=== PATIENT | male | born 1970 | race Caucasian/White ===

== ENCOUNTER → 2020-04-03 13:01 | Outpatient (CLI) | payer OTHER, SELFPAY ==
[2020-04-04 23:50] LABS: COVID19 Sendout Not Detected (Not Detect)
== END ==
PROVIDERS: Visit Provider Physician Assistant
DX: Z11.59 Encounter for screening for other viral diseases (principal)
CPT/HCPCS: 87635

== ENCOUNTER → 2021-12-22 16:26 | Outpatient (CLI) | payer OTHER, SELFPAY ==
--- NOTE | 2021-12-22 | DI.MRI.S_ITS ---
PROCEDURE: MR ANKLE RT WO CON INDICATIONS: pain in rt foot TECHNIQUE: Noncontrast sagittal T1 spin echo and T2 fast spin echo with fat saturation, axial proton density fast spin echo and T2 fast spin echo with fat saturation, coronal T1 spin echo and T2 fast spin echo with fat saturation through the ankle/hindfoot. COMPARISON: None. FINDINGS: Image quality: Excellent. Bones and joints: No bone marrow contusions or fractures. No hindfoot coalitions. Small chronic osteochondral lesion is seen at the lateral talar dome measuring 3 x 3 x 3 mm with focal subchondral edema. The overlying subchondral plate is intact and there is mild irregularity of the overlying articular cartilage. Cystic changes within the central calcaneus may be related to ligamentous traction or intraosseous ganglion formation. Mild degenerative changes at the 2nd tarsometatarsal joint and at the dorsal tarsometatarsal joint. A small ganglion cyst is seen at the plantar aspect of the 2nd tarsometatarsal joint measuring 13 x 7 x 6 mm. Medial structures: The deep and superficial layers of the deltoid ligament appear intact. The spring ligament components are intact. The posterior tibialis, flexor digitorum longus, and flexor hallucis longus tendons are intact. The posterior tibial neurovascular bundle appears normal within the tarsal tunnel, without extrinsic mass effect. Lateral structures: The anterior talofibular, calcaneofibular, and posterior talofibular ligaments appear intact. The anterior and posterior tibiofibular ligaments appear intact. Mild peroneus longus tendinosis. The peroneus brevis tendon is intact. There is partial effacement of the fat in the rotator interval. A cyst is seen in the sinus tarsi measuring up to 17 x 9 x 6 mm. Anterior structures: The tibialis anterior, extensor hallucis longus, and extensor digitorum longus tendons appear intact. The dorsal talonavicular ligament appears intact. Posterior and plantar structures: There is mild insertional Achilles tendinosis. Small retrocalcaneal bursal effusion. Mild thickening of the proximal plantar fascia is seen without surrounding edema. No abductor digiti quinti muscle atrophy to suggest Donovan neuropathy. IMPRESSION: 1. Tiny chronic osteochondral lesion at the lateral talar dome with mild subchondral edema and partial-thickness cartilage irregularity. Subchondral plate is intact. 2. Mild degenerative changes at the 2nd tarsometatarsal joint with a lobular ganglion cyst at the plantar aspect measuring up to 13 mm. 3. Mild peroneus longus tendinosis. 4. Mild tendinosis of the distal Achilles tendon. Small retrocalcaneal bursal effusion. 5. Mild chronic proximal plantar fasciitis. 6. Lobular ganglion cyst arising from the sinus tarsi measures up to 17 mm. Dictated by: Sg Winslow M.D. on 12/23/2021 at 8:09 Approved by: Sg Winslow M.D. on 12/23/2021 at 8:22
== END ==
PROVIDERS: Referring Provider Podiatrist; Visit Provider Podiatrist
DX: M67.471 Ganglion, right ankle and foot (principal); M25.471 Effusion, right ankle; M72.2 Plantar fascial fibromatosis; M79.671 Pain in right foot
CPT/HCPCS: 73721

== ENCOUNTER 2022-12-08 11:05 | Emergency (ER) | payer MEDICARE, OTHER, SELFPAY ==
[2022-12-08 11:10] VITALS: BP 150/87; PULSE 72; RESP 18; TEMP 36.6; O2SAT 99; BMI 39.1
--- NOTE | 2022-12-08 11:17 | DI.RAD.S_ITS ---
PROCEDURE: XR CHEST 2V INDICATIONS: CP TECHNIQUE: 2 views of the chest were acquired. COMPARISON: None. FINDINGS: Surgical changes and devices: None. Lungs and pleura: Lungs are clear. No pleural effusions or pneumothorax. Mediastinum: Mediastinal contours are normal. Heart size is normal. Bones and chest wall: No suspicious bony abnormalities. Soft tissues appear unremarkable. IMPRESSION: No acute pulmonary process. Dictated by: Daja Gage M.D. on 12/08/2022 at 12:25 Approved by: Daja Gage M.D. on 12/08/2022 at 12:25
--- NOTE | 2022-12-08 11:17 | ED_ITS ---
HPI - General Adult <Jimi Bland PA-C - Last Filed: 12/08/22 13:32> General Chief complaint: Hypertension Stated complaint: send by PCP/ high BP Time Seen by Provider: 12/08/22 11:06 Source: patient Mode of arrival: Ambulatory History of Present Illness HPI narrative: This is a 52-year-old male presents to the emergency department complaining elevated blood pressures for the last 3 days as well as a sensation of chest ?tightness? for the last 3 months. He states that it has slightly worsened over the last couple of days. He reports that his blood pressure was to ensure in 210/ ?over something. Patient does not have any cardiac history but does state history of hypertension he stopped taking his blood pressure medications 3 years ago ?just because?. He did take the propranolol that was previously prescribed to him last night. He denies any headaches, shortness of breath, nausea, vomiting, abdominal pain, or any other concerning signs or symptoms. Patient had a cardiac stress test a year ago and ?passed with flying colors?. Related Data Allergies Allergy/AdvReac Type Severity Reaction Status Date / Time No Known Drug Allergies Allergy Verified 12/08/22 11:15 Review of Systems <Jimi Bland PA-C - Last Filed: 12/08/22 13:32> Review of Systems Narrative: GENERAL: Denies chills, fatigue, malaise, fever, sweats. HEENT: Denies sinus pain, ear pain, sore throat, difficulty swallowing, dizziness. RESPIRATORY: Denies dyspnea, cough, wheezing, hemoptysis, sputum. CARDIOVASCULAR: Reports chest ?tightness? denies palpitations, orthopnea, edema, GASTROINTESTINAL: Denies nausea, vomiting, abdominal pain, diarrhea, constipation, melena. : Denies dysuria, frequency, incontinence, hematuria, urinary retention. MUSCULOSKELETAL: denies weakness, joint pain, or bony pain SKIN: Denies rash, skin lesions, or other NEUROLOGIC: Denies weakness, headache, numbness, change in speech, confusion, seizures, incoordination. PSYCHIATRIC: No concerning psychosocial issues. 12 point review of systems is negative except for those stated above Patient History <Jimi Bland PA-C - Last Filed: 12/08/22 13:32> Social History Smoking Status: Current every day smoker Smoking Status: Current every day smoker alcohol intake frequency: 0-2 drinks per day Substance Use Type: marijuana and prescription drug Exam <Jimi Bland PA-C - Last Filed: 12/08/22 13:32> Narrative Exam Narrative: GENERAL: Well-developed patient, in mild distress. HEAD: Atraumatic. Normocephalic. EYES: Pupils equal round and reactive. Extraocular motions intact. No scleral icterus. No injection or drainage. ENT: Nose without bleeding, purulent drainage. Throat without erythema, tonsillar hypertrophy or exudate. Airway patent. NECK: Trachea midline. Non tender CARDIOVASCULAR: Regular rate and rhythm without murmurs, gallops, or rubs. RESPIRATORY: Clear to auscultation. Breath sounds equal bilaterally. No wheezes, rales, or rhonchi. GASTROINTESTINAL: Abdomen soft, non-tender, nondistended. EXTREMITIES: No edema or joint tenderness. BACK: Nontender without deformity or crepitance. No flank tenderness. NEURO: AOx3. SKIN: No rash or erythema of visible areas Initial Vital Signs Initial Vital Signs: Vital Signs Temperature 97.9 F 12/08/22 11:10 Pulse Rate 72 12/08/22 11:10 Respiratory Rate 18 12/08/22 11:10 Blood Pressure 150/87 H 12/08/22 11:10 Pulse Oximetry 99 12/08/22 11:10 Oxygen Delivery Method Room Air 12/08/22 11:10 <Vitaly Clement DO - Last Filed: 12/13/22 04:16> Initial Vital Signs Initial Vital Signs: Vital Signs Temperature 97.9 F 12/08/22 11:10 Pulse Rate 72 12/08/22 11:10 Respiratory Rate 18 12/08/22 11:10 Blood Pressure 150/87 H 12/08/22 11:10 Pulse Oximetry 99 12/08/22 11:10 Oxygen Delivery Method Room Air 12/08/22 11:10 Course <Jimi Bland PA-C - Last Filed: 12/08/22 13:32> Orders Ordered: ED Orders 12/08/22 11:16 Complete Blood Count AUTO DIFF Stat Comprehensive Metabolic Panel Stat Troponin & CK Cardiac Panel Stat EKG-12 Lead Stat 12/08/22 11:17 XR chest 2V Stat Vital Signs Vital signs: Vital Signs - 8 hr 12/08/22 11:10 12/08/22 12:41 Temperature 97.9 F Pulse Rate 72 62 Respiratory Rate 18 15 Blood Pressure 150/87 H 182/99 H Pulse Oximetry 99 Oxygen Delivery Method Room Air <Vitaly Clement DO - Last Filed: 12/13/22 04:16> Orders Ordered: ED Orders 12/08/22 11:16 Complete Blood Count AUTO DIFF Stat Comprehensive Metabolic Panel Stat Troponin & CK Cardiac Panel Stat EKG-12 Lead Stat 12/08/22 11:17 XR chest 2V Stat Vital Signs Vital signs: Vital Signs - 8 hr 12/08/22 11:10 12/08/22 12:41 Temperature 97.9 F Pulse Rate 72 62 Respiratory Rate 18 15 Blood Pressure 150/87 H 182/99 H Pulse Oximetry 99 Oxygen Delivery Method Room Air Medical Decision Making <Jimi Bland PA-C - Last Filed: 12/08/22 13:32> Lab Data 12/08/22 11:20 12/08/22 11:20 Labs: Lab Results 12/08/22 12/08/22 Range/Units 11:20 11:20 WBC 5.1 (4.5-11.0) X10^3/uL RBC 4.87 (4.5-5.9) X10^6/uL Hgb 14.7 (13.5-17.5) g/dL Hct 43.2 (41-53) % MCV 88.6 (80-100) fL MCH 30.3 (26-34) PG MCHC 34.1 (30-36) % RDW 13.3 (11.6-14.8) % Plt Count 199 (150-400) X10^3/uL Neut % (Auto) 48.5 L (50-75) % Lymph % (Auto) 35.5 (25-40) % [place] % (Auto) 10.6 (3-14) % Eos % (Auto) 4.2 H (2-4) % Baso % (Auto) 1.2 (0-2) % Neut # (Auto) 2500 (1009-3283) /uL Lymph # (Auto) 1800 (5879-9319) /uL [place] # (Auto) 500 (0-900) /uL Eos # (Auto) 200 (0-450) /uL Baso # (Auto) 100 (0-100) /uL Sodium 138 (137-145) mmol/L Potassium 4.0 (3.4-5.1) mmol/L Chloride 103 (98-107) mmol/L Carbon Dioxide 30 (22-32) mmol/L BUN 14 (9-20) mg/dL Creatinine 1.03 (0.66-1.25) mg/dL Estimated GFR > 60 (>60) mL/min BUN/Creatinine Ratio 13.6 (6-22) Glucose 106 H (70-100) mg/dL Calcium 9.1 (8.4-10.2) mg/dL Total Bilirubin 0.8 (0.2-1.3) mg/dL AST 51 (17-59) IU/L ALT 67 H (<50) IU/L Alkaline Phosphatase 66 (38-126) U/L Total Creatine Kinase 472 H (55-170) U/L CK-MB (CK-2) TNP CK-MB (CK-2) Rel Index TNP Troponin I < 0.012 (0.01-0.034) ng/mL Total Protein 7.3 (6.3-8.2) g/dL Albumin 4.4 (3.5-5.0) g/dL Globulin 2.9 (1.7-4.1) g/dL Albumin/Globulin Ratio 1.5 (1.0-2.8) Imaging Data Chest x-ray: Radiologist's Impression: [address] [address] XRay Report Signed Patient: César Peterson MR#: [id number] : 1970 Acct:[id number] Age/Sex: 52 / M Date of Service: 12/08/22 Loc: ED Accession Number: [id number] ?? Procedure: XR chest 2V Ordering Provider: Jimi Bland P.A-C PROCEDURE:? XR CHEST 2V ? INDICATIONS:? CP ? TECHNIQUE:? 2 views of the chest were acquired.? ? COMPARISON:? None. ? FINDINGS:? ? Surgical changes and devices:? None.? ? Lungs and pleura:? Lungs are clear.? No pleural effusions or pneumothorax.? ? Mediastinum:? Mediastinal contours are normal.? Heart size is normal.? ? Bones and chest wall:? No suspicious bony abnormalities.? Soft tissues appear unremarkable.? ? IMPRESSION:? No acute pulmonary process. ? ? Dictated by: Daja Gage M.D. on 12/08/2022 at 12:25 ? ? Approved by: Daja Gage M.D. on 12/08/2022 at 12:25 ? ECG Data Interpretation: EKG is normal sinus rhythm rate 60 and free of any signs of ischemia or ectopy. No ST segmental elevation or depression. No T wave inversions MDM Narrative Medical decision making narrative: MDM * differential diagnosis includes but not limited to STEMI, NSTEMI, musculoskeletal chest pain, allergic reaction, atypical chest pain, thoracic aneurysm, hypertensive emergency * Prior records reviewed: Patient has not been here for similar symptoms in the past. * My lab interpretation: Lab work unremarkable. Troponin within normal limit. * My imaging interpretation: Chest x-ray unremarkable * Clinical Decision Rules/Scores evaluated: Heart score of 2 due to age and risk factors * Independent discussions with: None ED Course: This is a 52-year-old male presents emergency department due to reports of elevated blood pressure although today in the emergency department was 150/87. He is also describing a chest ?tightness? over last 3 months which she says is worse over the last couple of days with his elevated blood pressures. He is not been taking his blood pressure medications. He did take his propranolol last night and this morning which I suspect help with his blood pressure readings. I recommend he continue taking his blood pressure medications that were prescribed by his primary care doctor and to follow up with his primary care doctor for long-term blood pressure management. Patient is not exhibiting any other symptoms of end-organ damage. EKG, chest x-ray, unremarkable and troponin within normal limits and low concern for ACS. Shared Decision Making: Discussed plan the patient is comfortable with the plan. Social Considerations: None Disposition: Discharged to home <Vitaly Clement DO - Last Filed: 12/13/22 04:16> Lab Data Labs: Lab Results 12/08/22 12/08/22 Range/Units 11:20 11:20 WBC 5.1 (4.5-11.0) X10^3/uL RBC 4.87 (4.5-5.9) X10^6/uL Hgb 14.7 (13.5-17.5) g/dL Hct 43.2 (41-53) % MCV 88.6 (80-100) fL MCH 30.3 (26-34) PG MCHC 34.1 (30-36) % RDW 13.3 (11.6-14.8) % Plt Count 199 (150-400) X10^3/uL Neut % (Auto) 48.5 L (50-75) % Lymph % (Auto) 35.5 (25-40) % [place] % (Auto) 10.6 (3-14) % Eos % (Auto) 4.2 H (2-4) % Baso % (Auto) 1.2 (0-2) % Neut # (Auto) 2500 (8699-1498) /uL Lymph # (Auto) 1800 (0444-3925) /uL [place] # (Auto) 500 (0-900) /uL Eos # (Auto) 200 (0-450) /uL Baso # (Auto) 100 (0-100) /uL Sodium 138 (137-145) mmol/L Potassium 4.0 (3.4-5.1) mmol/L Chloride 103 (98-107) mmol/L Carbon Dioxide 30 (22-32) mmol/L BUN 14 (9-20) mg/dL Creatinine 1.03 (0.66-1.25) mg/dL Estimated GFR > 60 (>60) mL/min BUN/Creatinine Ratio 13.6 (6-22) Glucose 106 H (70-100) mg/dL Calcium 9.1 (8.4-10.2) mg/dL Total Bilirubin 0.8 (0.2-1.3) mg/dL AST 51 (17-59) IU/L ALT 67 H (<50) IU/L Alkaline Phosphatase 66 (38-126) U/L Total Creatine Kinase 472 H (55-170) U/L CK-MB (CK-2) TNP CK-MB (CK-2) Rel Index TNP Troponin I < 0.012 (0.01-0.034) ng/mL Total Protein 7.3 (6.3-8.2) g/dL Albumin 4.4 (3.5-5.0) g/dL Globulin 2.9 (1.7-4.1) g/dL Albumin/Globulin Ratio 1.5 (1.0-2.8) Discharge Plan Departure Patient Disposition: Home Clinical Impression: Elevated blood pressure reading Instructions: DI for High Blood Pressure Activity Restrictions/Additional Instructions: Thank you for coming to the [facility] Emergency Department today. Your workup today was unremarkable. Your chest x-ray showed no evidence of any lung abnormalities. Your EKG showed no evidence of any kind of cardiac abnormality. Your blood values were reassuring as well. Recommend you continue taking the blood pressure medication that was prescribed to you by your primary care provider. Please follow up with them within the week for long-term management of your blood pressure. I hope you feel better soon. Referrals: Markos Bentley MD [Primary Care Provider] - Stand Alone Forms: Patient Portal/API <Vitaly Clement DO - Last Filed: 12/13/22 04:16> Cosign ED Attending Taneshaature Attestation: I was immediately available in the department for consultation. Documentation has been reviewed. I agree with assessment and plan.
[2022-12-08 11:42] LABS: Alanine Aminotransferase 67 IU/L (<50); Albumin 4.4 g/dL (3.5-5.0); Albumin Globulin Ratio 1.5 (1.0-2.8); Alkaline Phosphatase 66 U/L (38-126); Aspartate Aminotransferase 51 IU/L (17-59); BUN Creatinine Ratio 13.6 (6-22); Bilirubin Total 0.8 mg/dL (0.2-1.3); Blood Urea Nitrogen 14 mg/dL (9-20); Calcium 9.1 mg/dL (8.4-10.2); Carbon Dioxide 30 mmol/L (22-32); Chloride 103 mmol/L (98-107); Creatine Kinase 472 U/L (55-170); Estimated Glomerular Filt Rate > 60 mL/min (>60); Globulin 2.9 g/dL (1.7-4.1); Glucose 106 mg/dL (70-100); HEMOLYSIS < 15 (0-50); Sodium 138 mmol/L (137-145); Total Protein 7.3 g/dL (6.3-8.2)
[2022-12-08 11:46] LABS: Add Manual Diff / Slide Review NO; Basophils Absolute Auto 100 /uL (0-100); Basophils Percent Auto 1.2 % (0-2); Eosinophils Absolute Auto 200 /uL (0-450); Eosinophils Percent Auto 4.2 % (2-4); Hematocrit 43.2 % (41-53); Hemoglobin 14.7 g/dL (13.5-17.5); Lymphocytes Absolute Auto 1800 /uL (1100-4500); Lymphocytes Percent Auto 35.5 % (25-40); Mean Corpuscular HGB Conc 34.1 % (30-36); Mean Corpuscular Hemoglobin 30.3 PG (26-34); Mean Corpuscular Volume 88.6 fL (80-100); Monocytes Absolute Auto 500 /uL (0-900); Monocytes Percent Auto 10.6 % (3-14); Neutrophils Absolute Auto 2500 /uL (1500-7000); Neutrophils Percent Auto 48.5 % (50-75); Platelet Count 199 X10^3/uL (150-400); Red Blood Cell Count 4.87 X10^6/uL (4.5-5.9); Red Cell Distribution Width 13.3 % (11.6-14.8); White Blood Cell Count 5.1 X10^3/uL (4.5-11.0)
[2022-12-08 11:54] LABS: Troponin I < 0.012 ng/mL (0.01-0.034)
[2022-12-08 12:41] VITALS: BP 182/99; PULSE 62; RESP 15
== END 2022-12-08 12:44 | disposition home or self-care (01) ==
PROVIDERS: Emergency Provider Physician Assistant Medical; PCP Internal Medicine
DX: I10 Essential (primary) hypertension (principal); R07.9 Chest pain, unspecified
CPT/HCPCS: 36415; 71046; 80053; 82550; 84484; 85025; 93005; 99284

== ENCOUNTER 2024-10-29 07:01 | Emergency (ER) | payer MEDICARE, OTHER, SELFPAY ==
[2024-10-29 07:07] VITALS: BP 176/91; PULSE 68; RESP 14; TEMP 36.9; O2SAT 98; BMI 32.8
--- NOTE | 2024-10-29 07:28 | ED_ITS ---
HPI - Abdominal Pain General Chief Complaint: Urogenital-Male Stated Complaint: Possible Kidney Infection X7 days Time Seen by Provider: 10/29/24 07:17 Source: patient Mode of arrival: Ambulatory History of Present Illness HPI narrative: Patient here for right flank pain and urinary urgency for the past 10 days. No hematuria. No nausea or vomiting no sweating. Has been taking ibuprofen and in his home Percocet without relief. Last night pain intensified at 2:00 a.m.. Never had kidney stone in the past. No history of aortic aneurysm or dissection. Patient denies any chest pain. No known injury to the back. He has been working around his home to prepare to be sold. Related Data Previous Rx's Medication Instructions Recorded tamsulosin 0.4 mg capsule 0.4 mg PO DAILY #7 caps 10/29/24 Allergies Allergy/AdvReac Type Severity Reaction Status Date / Time No Known Drug Allergies Allergy Verified 10/29/24 07:13 Review of Systems Review of Systems Narrative: GENERAL: Negative chills, fatigue, malaise, fever, sweats. HEENT: Negative sinus pain, ear pain, sore throat RESPIRATORY: Negative dyspnea, cough CARDIOVASCULAR: Negative chest pain, palpitations GASTROINTESTINAL: Negative vomiting, nausea, abdominal pain positive flank pain : Negative dysuria, frequency, hematuria, positive urgency MUSCULOSKELETAL: Negative muscle or bony pain SKIN: Negative rash, skin lesions NEUROLOGIC: Negative weakness, numbness ROS Unobtainable: All systems reviewed & are unremarkable except as noted in HPI and below Patient History Social History Smoking Status: Current every day smoker Smoking Status: Current every day smoker alcohol intake frequency: 0-2 drinks per day Exam Narrative Exam Narrative: GENERAL: in no distress, not toxic not dyspneic HEAD: Normocephalic. EYES: Pupils equal round ENT: Mucous membranes moist. NECK: Trachea midline. CARDIOVASCULAR: Regular rate and rhythm RESPIRATORY: Clear to auscultation. Breath sounds equal bilaterally. No wheezes, rales, or rhonchi. GASTROINTESTINAL: Abdomen soft, non-tender, no peritoneal signs no guarding or rebound bowel sounds are present. EXTREMITIES: No gross deformities. BACK: No flank tenderness. No CVA tenderness NEURO: AOx4. Clear speech SKIN: Warm and dry PSYCH: Not anxious, is cooperative Initial Vital Signs Initial Vital Signs: Vital Signs Temperature 98.4 F 10/29/24 07:07 Pulse Rate 68 10/29/24 07:07 Respiratory Rate 14 10/29/24 07:07 Blood Pressure 176/91 H 10/29/24 07:07 Pulse Oximetry 98 10/29/24 07:07 Oxygen Delivery Method Room Air 10/29/24 07:07 Course Orders Ordered: Discontinued Medications Sodium Chloride (Normal Saline 0.9%) 1,000 mls @ 1,000 mls/hr IV BOLUS ONE Stop: 10/29/24 08:26 Last Infusion: 10/29/24 08:47 Dose: Infused Documented By: Admin: 10/29/24 07:39 Dose: 1,000 mls/hr Documented By: CIPRIANO Ketorolac Tromethamine (Ketorolac 30 Mg/Ml Vial) 15 mg IV NOW ONE Stop: 10/29/24 07:28 Last Admin: 10/29/24 07:40 Dose: 15 mg Documented By: CIPRIANO Ondansetron HCl (Ondansetron 4 Mg/2 Ml Inj) 4 mg IV NOW PRN PRN Reason: Nausea And Vomiting Ondansetron HCl (Ondansetron 4 Mg Odt) 4 mg PO NOW PRN PRN Reason: Nausea And Vomiting Tamsulosin HCl (Tamsulosin 0.4 Mg Capsule) 0.4 mg PO NOW ONE Stop: 10/29/24 08:49 Last Admin: 10/29/24 08:52 Dose: 0.4 mg Documented By: CIPRIANO Vital Signs Vital signs: Vital Signs - 8 hr 10/29/24 07:07 Temperature 98.4 F Pulse Rate 68 Respiratory Rate 14 Blood Pressure 176/91 H Pulse Oximetry 98 Oxygen Delivery Method Room Air MDM - Abdominal Pain Lab Data 10/29/24 07:35 10/29/24 07:35 Labs: Lab Results 10/29/24 10/29/24 10/29/24 Range/Units 07:12 07:12 07:12 WBC (4.5-11.0) X10^3/uL RBC (4.5-5.9) X10^6/uL Hgb (13.5-17.5) g/dL Hct (41-53) % MCV (80-100) fL MCH (26-34) PG MCHC (30-36) % RDW (11.6-14.8) % Plt Count (150-400) X10^3/uL Neut % (Auto) (50-75) % Lymph % (Auto) (25-40) % [place] % (Auto) (3-14) % Eos % (Auto) (2-4) % Baso % (Auto) (0-2) % Neut # (Auto) (8868-5724) /uL Lymph # (Auto) (0377-4791) /uL [place] # (Auto) (0-900) /uL Eos # (Auto) (0-450) /uL Baso # (Auto) (0-100) /uL Sodium (137-145) mmol/L Potassium (3.4-5.1) mmol/L Chloride (98-107) mmol/L Carbon Dioxide (22-32) mmol/L BUN (9-20) mg/dL Creatinine (0.66-1.25) mg/dL Estimated GFR (>60) mL/min BUN/Creatinine Ratio (6-22) Glucose (70-99) mg/dL Calcium (8.4-10.2) mg/dL Total Bilirubin (0.2-1.3) mg/dL AST (17-59) IU/L ALT (<50) IU/L Alkaline Phosphatase (38-126) U/L Total Protein (6.3-8.2) g/dL Albumin (3.5-5.0) g/dL Globulin (1.7-4.1) g/dL Albumin/Globulin Ratio (1.0-2.8) Urine Color Yellow Urine Appearance Clear Urine pH 5.5 (4.5-8.0) Ur Specific Plato 1.020 (1.000-1.035) Urine Protein Negative (Negative) Urine Glucose (UA) Negative (Negative) g/dL Urine Ketones Negative (NEGATIVE) Urine Occult Blood 3+ H (Negative) Urine Nitrate Negative (Negative) Urine Bilirubin Negative (NEGATIVE) Urine Urobilinogen 0.2 (0.2) E.U./dL Ur Leukocyte Esterase Negative (NEGATIVE) Urine RBC Cancelled 10-30/hpf H Urine WBC Cancelled None seen Ur Squamous Epith Cells Cancelled Ur Transition Epith Cell Ur Renal Epithelial Cell Calcium Oxalate Crystal Uric Acid Crystals Triple Phos Crystals Other Crystals Amorphous Sediment Urine Bacteria Hyaline Casts Granular Casts RBC Casts WBC Casts Other Casts Urine Mucus Urine Trichomonas Urine Yeast Urine Sperm Ur Culture Indicated? Micro UA Comment Vol Urine Centrifuged 10/29/24 10/29/24 10/29/24 Range/Units 07:12 07:12 07:12 WBC (4.5-11.0) X10^3/uL RBC (4.5-5.9) X10^6/uL Hgb (13.5-17.5) g/dL Hct (41-53) % MCV (80-100) fL MCH (26-34) PG MCHC (30-36) % RDW (11.6-14.8) % Plt Count (150-400) X10^3/uL Neut % (Auto) (50-75) % Lymph % (Auto) (25-40) % [place] % (Auto) (3-14) % Eos % (Auto) (2-4) % Baso % (Auto) (0-2) % Neut # (Auto) (9882-3857) /uL Lymph # (Auto) (4581-3090) /uL [place] # (Auto) (0-900) /uL Eos # (Auto) (0-450) /uL Baso # (Auto) (0-100) /uL Sodium (137-145) mmol/L Potassium (3.4-5.1) mmol/L Chloride (98-107) mmol/L Carbon Dioxide (22-32) mmol/L BUN (9-20) mg/dL Creatinine (0.66-1.25) mg/dL Estimated GFR (>60) mL/min BUN/Creatinine Ratio (6-22) Glucose (70-99) mg/dL Calcium (8.4-10.2) mg/dL Total Bilirubin (0.2-1.3) mg/dL AST (17-59) IU/L ALT (<50) IU/L Alkaline Phosphatase (38-126) U/L Total Protein (6.3-8.2) g/dL Albumin (3.5-5.0) g/dL Globulin (1.7-4.1) g/dL Albumin/Globulin Ratio (1.0-2.8) Urine Color Urine Appearance Urine pH (4.5-8.0) Ur Specific [place] (1.000-1.035) Urine Protein (Negative) Urine Glucose (UA) (Negative) g/dL Urine Ketones (NEGATIVE) Urine Occult Blood (Negative) Urine Nitrate (Negative) Urine Bilirubin (NEGATIVE) Urine Urobilinogen (0.2) E.U./dL Ur Leukocyte Esterase (NEGATIVE) Urine RBC Urine WBC Ur Squamous Epith Cells None seen Ur Transition Epith Cell Cancelled Ur Renal Epithelial Cell Cancelled Calcium Oxalate Crystal Cancelled Uric Acid Crystals Cancelled Triple Phos Crystals Cancelled Other Crystals Cancelled Amorphous Sediment Cancelled Urine Bacteria Cancelled None seen Hyaline Casts Cancelled Granular Casts Cancelled RBC Casts Cancelled WBC Casts Cancelled Other Casts Cancelled Urine Mucus Cancelled Urine Trichomonas Cancelled Urine Yeast Cancelled Urine Sperm Cancelled Ur Culture Indicated? Cancelled Cult not indicated Micro UA Comment Cancelled Vol Urine Centrifuged Cancelled 10/29/24 10/29/24 Range/Units 07:12 07:35 WBC 7.8 (4.5-11.0) X10^3/uL RBC 4.92 (4.5-5.9) X10^6/uL Hgb 15.2 (13.5-17.5) g/dL Hct 43.8 (41-53) % MCV 88.9 (80-100) fL MCH 30.9 (26-34) PG MCHC 34.7 (30-36) % RDW 13.0 (11.6-14.8) % Plt Count 172 (150-400) X10^3/uL Neut % (Auto) 64.1 (50-75) % Lymph % (Auto) 21.7 L (25-40) % [place] % (Auto) 10.0 (3-14) % Eos % (Auto) 2.8 (2-4) % Baso % (Auto) 1.4 (0-2) % Neut # (Auto) 5000 (1794-2415) /uL Lymph # (Auto) 1700 (9983-7903) /uL [place] # (Auto) 800 (0-900) /uL Eos # (Auto) 200 (0-450) /uL Baso # (Auto) 100 (0-100) /uL Sodium 136 L (137-145) mmol/L Potassium 4.6 (3.4-5.1) mmol/L Chloride 103 (98-107) mmol/L Carbon Dioxide 23 (22-32) mmol/L BUN 23 H (9-20) mg/dL Creatinine 1.15 (0.66-1.25) mg/dL Estimated GFR > 60 (>60) mL/min BUN/Creatinine Ratio 20.0 (6-22) Glucose 121 H (70-99) mg/dL Calcium 9.7 (8.4-10.2) mg/dL Total Bilirubin 0.5 (0.2-1.3) mg/dL AST 62 H (17-59) IU/L ALT 52 H (<50) IU/L Alkaline Phosphatase 68 (38-126) U/L Total Protein 7.7 (6.3-8.2) g/dL Albumin 4.8 (3.5-5.0) g/dL Globulin 2.9 (1.7-4.1) g/dL Albumin/Globulin Ratio 1.7 (1.0-2.8) Urine Color Urine Appearance Urine pH (4.5-8.0) Ur Specific [place] (1.000-1.035) Urine Protein (Negative) Urine Glucose (UA) (Negative) g/dL Urine Ketones (NEGATIVE) Urine Occult Blood (Negative) Urine Nitrate (Negative) Urine Bilirubin (NEGATIVE) Urine Urobilinogen (0.2) E.U./dL Ur Leukocyte Esterase (NEGATIVE) Urine RBC Urine WBC Ur Squamous Epith Cells Ur Transition Epith Cell Ur Renal Epithelial Cell Calcium Oxalate Crystal Uric Acid Crystals Triple Phos Crystals Other Crystals Amorphous Sediment Urine Bacteria Hyaline Casts Granular Casts RBC Casts WBC Casts Other Casts Urine Mucus Urine Trichomonas Urine Yeast Urine Sperm Ur Culture Indicated? Micro UA Comment Vol Urine Centrifuged 10ml (spun) Point of care testing: Urine Dip Bedside Urine Glucose Negative Bedside Urine Bilirubin - Negative Bedside Urine Ketone - Negative Urine Specific Plato 1.015 Bedside Urine Occult Blood +++ Bedside Urine pH 6.0 Bedside Urine Protein - Negative Bedside Urine Urobilinogen - Negative Bedside Urine Nitrite - Negative Bedside Urine Leukocytes - Negative Esterase Imaging Data CT scan - abdomen/pelvis: Radiologist's Impression: [address] [address] [address] Scan Report Signed Patient: César Peterson MR#: [id number] : 1970 Acct:[id number] Age/Sex: 54 / M Date of Service: 10/29/24 Loc: ED Accession Number: [id number] Procedure: CT kidney ureter bladder (KUB) Ordering Provider: Shaq Laureano MD PROCEDURE: CT KIDNEY URETER BLADDER (KUB) INDICATIONS: Right flank pain TECHNIQUE: Axial sections were acquired from the lung bases to the pubic symphysis. Coronal and sagittal reformats were performed. For radiation dose reduction, the following was used: automated exposure control, adjustment of mA and/or kV according to patient size. COMPARISON: None. FINDINGS: Image quality: Diagnostic. Lower Chest: No significant findings. URINARY: Right Kidney: Mild right hydronephrosis. No stone. Right Ureter: Mild hydroureter no stone. Left Kidney: No stones or hydronephrosis. Left Ureter: No hydroureter. Bladder: Normal wall thickness. 2 mm calcification is present within the bladder distal to the ureterovesicular junction. ABDOMEN: Liver: No contour-deforming solid mass. Gallbladder: No radiopaque gallstones or wall thickening. Biliary ducts: No biliary dilation. Pancreas: No ductal dilation. Spleen: Size is within normal limits. Adrenal Glands: No adrenal nodules. Stomach and Bowel: Normal colonic caliber, without significant wall thickening. Diverticula without inflammatory change. Mild hiatal hernia. Peritoneum: No abnormal intraperitoneal fluid. No free air. Ventral Wall: No hernia. Abdominal Nodes: No enlarged retroperitoneal or mesenteric lymph nodes. Vessels: Aorta and inferior vena cava are normal in size. PELVIS: Pelvic Organs: Unremarkable. Pelvic Nodes: Unremarkable. Miscellaneous: Small bilateral fat containing inguinal hernias are seen. Bones: Unremarkable. IMPRESSION: Mild right hydronephrosis and hydroureter secondary to recently passed stone, now visualized in the bladder. Dictated by: Daja Gage M.D. on 10/29/2024 at 8:28 Approved by: Daja Gage M.D. on 10/29/2024 at 8:29 [facility] Narrative Medical decision making narrative: Patient here for right flank pain and urinary urgency for the past 10 days. No hematuria. No nausea or vomiting no sweating. Has been taking ibuprofen and in his home Percocet without relief. Last night pain intensified at 2:00 a.m.. Never had kidney stone in the past. No history of aortic aneurysm or dissection. Patient denies any chest pain. No known injury to the back. He has been working around his home to prepare to be sold. After history and exam, CBC CMP urinalysis CT KUB Toradol normal saline [facility] Medical records reviewed: No recent visit for this complaint Differential considered: Includes but not limited to kidney stone pyelonephritis UTI appendicitis aortic dissection Lab Test results independently reviewed as above. Pertinent findings: WBC 7.8 BUN 23 creatinine 1.15 urinalysis positive blood negative nitrate negative leukocyte esterase Imaging studies independently reviewed: CT abdomen pelvis there is a 2 mm bladder stone, recently passed stone on the right Consultations: Referral given for urology Re-evaluations: 8:51 a.m.. Patient pain-free. He feels much better. Reviewed with patient he likely passed a stone into his bladder early this morning. Reviewed results with him. Urology referral provided. He is pain-free. Flomax will be started in prescribed. He agrees with treatment plan and desires discharge home. Discussion: Appropriate for discharge home. Exam is reassuring. Return precautions reviewed. Pain-free at time of discharge. No antibiotics are indicated at this time. He desires discharge home. Diagnosis: Kidney stone Discharge Plan Departure Patient Disposition: Home Clinical Impression: Kidney stone on right side Instructions: DI for Kidney Stones Activity Restrictions/Additional Instructions: Your results showed that you have recently passed a kidney stone. It is in your bladder at this time and should pass with ease. Please call provided urology office today for follow up appointment within a week. Keep well hydrated. You may continue your home medications. Prescription for Flomax has been started today and sent to your pharmacy to continue tomorrow. This is to help promote kidney stone to be voided out. Return if worse if any questions or concerns Prescriptions: New tamsulosin 0.4 mg capsule 0.4 mg PO DAILY Qty: 7 0RF Referrals: Markos Bentley MD [Primary Care Provider] - Shaq Pryor MD [Physician] - Stand Alone Forms: Patient Portal/API/Survey
[2024-10-29 07:37] LABS: Appearance Urine UA CLEAR; Bilirubin Urine UA NEGATIVE (NEGATIVE); Color Urine UA YELLOW; Glucose Urine UA NEGATIVE (Negative); Ketones Urine UA NEGATIVE (NEGATIVE); Leukocyte Esterase Urine UA NEGATIVE (NEGATIVE); Nitrite Urine UA NEGATIVE (Negative); Occult Blood Urine UA 3+ (Negative); Protein Urine UA NEGATIVE (Negative); Urobilinogen Urine UA 0.2 E.U./dL (0.2); pH Urine UA 5.5 (4.5-8.0)
[2024-10-29 07:38] LABS: Urine Volume 10mL (spun)
[2024-10-29] MEDS: SODIUM CHLORIDE 0.9% 1,000 ML 1000 ML IV (07:39)
[2024-10-29 07:40] LABS: Bacteria Urine None Seen; Culture Indicated Urine Cult Not Indicated; RBC Urine 10-30/HPF (0-5/HPF); Squamous Epithelial Cell Urine None Seen (0-5/HPF); WBC Urine None Seen (0-5/HPF)
[2024-10-29] MEDS: KETOROLAC 30 MG/ML VIAL 15 MG IV (07:40)
[2024-10-29 07:50] LABS: Add Manual Diff / Slide Review NO; Basophils Absolute Auto 100 /uL (0-100); Basophils Percent Auto 1.4 % (0-2); Eosinophils Absolute Auto 200 /uL (0-450); Eosinophils Percent Auto 2.8 % (2-4); Hematocrit 43.8 % (41-53); Hemoglobin 15.2 g/dL (13.5-17.5); Lymphocytes Absolute Auto 1700 /uL (1100-4500); Lymphocytes Percent Auto 21.7 % (25-40); Mean Corpuscular HGB Conc 34.7 % (30-36); Mean Corpuscular Hemoglobin 30.9 PG (26-34); Mean Corpuscular Volume 88.9 fL (80-100); Monocytes Absolute Auto 800 /uL (0-900); Neutrophils Absolute Auto 5000 /uL (1500-7000); Neutrophils Percent Auto 64.1 % (50-75); Platelet Count 172 X10^3/uL (150-400); Red Blood Cell Count 4.92 X10^6/uL (4.5-5.9); White Blood Cell Count 7.8 X10^3/uL (4.5-11.0)
[2024-10-29 08:01] LABS: Alanine Aminotransferase 52 IU/L (<50); Albumin 4.8 g/dL (3.5-5.0); Albumin Globulin Ratio 1.7 (1.0-2.8); Alkaline Phosphatase 68 U/L (38-126); Aspartate Aminotransferase 62 IU/L (17-59); Bilirubin Total 0.5 mg/dL (0.2-1.3); Blood Urea Nitrogen 23 mg/dL (9-20); Calcium 9.7 mg/dL (8.4-10.2); Carbon Dioxide 23 mmol/L (22-32); Chloride 103 mmol/L (98-107); Estimated Glomerular Filt Rate > 60 mL/min (>60); Globulin 2.9 g/dL (1.7-4.1); Glucose 121 mg/dL (70-99); HEMOLYSIS < 15 (0-50); Potassium 4.6 mmol/L (3.4-5.1); Sodium 136 mmol/L (137-145); Total Protein 7.7 g/dL (6.3-8.2)
[2024-10-29 08:48] VITALS: BP 163/107; PULSE 54; O2SAT 98
[2024-10-29] MEDS: TAMSULOSIN 0.4 MG CAPSULE PO (08:52)
== END 2024-10-29 09:01 | disposition home or self-care (01) ==
PROVIDERS: Emergency Provider Emergency Medicine; PCP Internal Medicine
DX: N20.0 Calculus of kidney (principal)
CPT/HCPCS: 36415; 74176; 80053; 81001; 81003; 85025; 96361; 96374; 99284; J1885